=== PATIENT | male | born 1980 | race Caucasian/White ===

== ENCOUNTER 2018-04-13 20:13 | Emergency (ER) | payer OTHER ==
[~2018-04-13] VITALS: Ht 154.9 cm; Wt 59.0 kg
[~2018-04-13 20:13] MED LIST: DOCSEN PO; HYDMOR4 PO; PROM25 PO
[2018-04-13] MEDS ORDERED: AMLO5 (20:40)
[2018-04-13] MEDS ORDERED: CYCL10 PO (20:40)
[2018-04-13] MEDS ORDERED: LEVSOD50 (20:41)
[2018-04-13] MEDS ORDERED: NYST237S MT (21:07)
[2018-04-13] MEDS ORDERED: Zithromax250 MG PO (21:07)
[2018-04-14] MEDS ORDERED: Chloraseptic177 ML TOP (15:41)
== END 2018-04-13 21:12 | disposition home or self-care (01) ==
LOC: ER 20:13
DX: J02.9 Acute pharyngitis, unspecified (principal); I10 Essential (primary) hypertension; F17.210 Nicotine dependence, cigarettes, uncomplicated; Z79.899 Other long term (current) drug therapy
CPT/HCPCS: 94640; 99283-25; J1100

== ENCOUNTER 2019-06-01 10:36 | Emergency (ER) | payer OTHER ==
[~2019-06-01] VITALS: Ht 154.9 cm; Wt 61.2 kg
[~2019-06-01 10:36] MED LIST changes: +AMLO5; +CYCL10 PO; +Chloraseptic177 ML TOP; +Cleocin HCl300 MG PO; +LEVSOD50; +NYST237S MT; +Zithromax250 MG PO
== END 2019-06-01 12:45 | disposition home or self-care (01) ==
LOC: ER 10:36
DX: M25.462 Effusion, left knee (principal); I10 Essential (primary) hypertension; F17.200 Nicotine dependence, unspecified, uncomplicated
CPT/HCPCS: 29505; 73564; 99283-25

== ENCOUNTER 2019-06-14 19:39 | Emergency (ER) | payer OTHER ==
[~2019-06-14] VITALS: Ht 152.4 cm; Wt 61.2 kg
[2019-06-14 20:23] LABS: BASOPHILS PERCENT AUTO 1 % (0-2); EOSINOPHILS ABSOLUTE AUTO 0.14 K/mm3 (0.00-0.68); EOSINOPHILS PERCENT AUTO 1 % (0-6); Hematocrit 47.3 % (37.0-53.0); Hemoglobin 15.5 g/dL (13.5-17.5); IMMATURE GRAN ABSOLUTE AUTO 0.04 K/mm3 (0.00-0.10); IMMATURE GRAN PERCENT AUTO 0 % (0-1); LYMPHOCYTES ABSOLUTE AUTO 1.95 K/mm3 (0.84-5.20); LYMPHOCYTES PERCENT AUTO 17 % (21-46); MONOCYTES PERCENT AUTO 8 % (4-13); Mean Corpuscular HGB 29.3 pg (26.0-34.0); Mean Corpuscular HGB Conc 32.8 g/dL (31.5-36.5); Mean Corpuscular Volume 89 fL (80-100); Mean Platelet Volume 9.2 fL (9.1-12.4); NEUTROPHILS ABSOLUTE AUTO 8.41 K/mm3 (1.96-9.15); NEUTROPHILS PERCENT AUTO 73 % (41-73); Platelet Count 302 K/mm3 (150-400); RDW Coefficient Variation 12.7 % (11.7-14.2); RDW Standard Deviation 41.7 fL (35.1-46.3); Red Blood Cell Count 5.29 M/mm3 (4.30-5.90); White Blood Cell Count 11.54 K/mm3 (4.00-11.30)
[2019-06-14 20:42] LABS: Alanine Aminotransfer (ALT/SGP 16 U/L (12-78); Albumin, Blood 4.3 g/dL (3.4-5.0); Alk Phos 136 U/L (50-136); Anion Gap 4 mmol/L (6-16); Aspartate Aminotrans (AST/SGOT 29 U/L (12-37); Bilirubin, Total 0.7 mg/dL (0.1-1.0); Blood Urea Nitrogen 13 mg/dL (8-24); Bun/Creatinine Ratio 15.4 (12.0-20.0); CO2, Blood 29 mmol/L (21-32); Calcium, Blood 9.7 mg/dL (8.5-10.1); Chloride, Blood 105 mmol/L (98-108); Creatinine, Blood 0.84 mg/dL (0.60-1.20); Globulin, Blood 4.1 g/dL (2.2-4.0); Glomerular Filtration Rate >60 (60-); Glucose, Blood 106 mg/dL (70-99); Sodium, Blood 138 mmol/L (136-145); Total Protein, Blood 8.4 g/dL (6.4-8.2)
[2019-06-14] MEDS ORDERED: LEVE500 PO (23:20)
[2019-06-14] MEDS ORDERED: Norvasc5 MG PO (23:20)
== END 2019-06-14 23:45 | disposition home or self-care (01) ==
LOC: ER 19:39
PROVIDERS: Physician Assistant
DX: R56.9 Unspecified convulsions (principal); I10 Essential (primary) hypertension; F17.210 Nicotine dependence, cigarettes, uncomplicated; Z91.14 Patient's other noncompliance with medication regimen
CPT/HCPCS: 36415; 80053; 85025; 99283-25

== ENCOUNTER 2019-10-09 18:01 | Emergency (ER) | payer OTHER ==
[~2019-10-09 18:01] MED LIST changes: +LEVE500 PO; +Norvasc5 MG PO
[2019-10-28] MEDS ORDERED: AMLODIPINE BESYL5 MG PO (01:06)
[2019-10-28] MEDS ORDERED: LEVE500 PO (01:07)
[2019-10-28] MEDS ORDERED: HYDCOR2.5C PR (01:42)
[2019-10-28] MEDS ORDERED: Colace250 MG PO (01:42)
== END 2019-10-09 19:07 | disposition left against medical advice (07) ==
LOC: ER 18:01
DX: Z53.21 Procedure and treatment not carried out due to patient leaving prior to being seen by health care provider (principal)

== ENCOUNTER 2019-10-16 10:16 | Emergency (ER) | payer OTHER ==
[~2019-10-16] VITALS: Ht 154.9 cm; Wt 61.2 kg
[2019-10-28] MEDS ORDERED: AMLODIPINE BESYL5 MG PO (01:06)
[2019-10-28] MEDS ORDERED: LEVE500 PO (01:07)
[2019-10-28] MEDS ORDERED: HYDCOR2.5C PR (01:42)
[2019-10-28] MEDS ORDERED: Colace250 MG PO (01:42)
== END 2019-10-16 11:24 ==
LOC: ER 10:16
DX: R25.1 Tremor, unspecified (principal); I10 Essential (primary) hypertension; F17.210 Nicotine dependence, cigarettes, uncomplicated
CPT/HCPCS: 99283

== ENCOUNTER 2020-07-16 19:36 | Emergency (ER) | payer OTHER ==
[~2020-07-16 19:36] MED LIST changes: +ALBU90OI INH; +AMLODIPINE BESYL5 MG PO; +Colace250 MG PO; +HYDCOR2.5C PR
[2020-07-20] MEDS ORDERED: Crutch1 EACH MISC (02:43)
== END 2020-07-16 20:22 | disposition left against medical advice (07) ==
LOC: ER 19:36
DX: Z53.21 Procedure and treatment not carried out due to patient leaving prior to being seen by health care provider (principal)

== ENCOUNTER 2020-09-01 02:08 | Emergency (ER) | payer OTHER ==
[~2020-09-01] VITALS: Ht 152.4 cm; Wt 65.8 kg
[~2020-09-01 02:08] MED LIST changes: +Crutch1 EACH MISC
[2020-09-01] MEDS ORDERED: ALBU90OI INH (03:41)
[2020-09-01] MEDS ORDERED: PRED20 PO (03:41)
[2020-09-01] MEDS ORDERED: BACL10 PO (03:48)
== END 2020-09-01 03:52 | disposition home or self-care (01) ==
LOC: ER 02:08
DX: J44.9 Chronic obstructive pulmonary disease, unspecified (principal); I10 Essential (primary) hypertension; F17.210 Nicotine dependence, cigarettes, uncomplicated; Z87.39 Personal history of other diseases of the musculoskeletal system and connective tissue; Z79.899 Other long term (current) drug therapy
CPT/HCPCS: 71046; 94640; 99283-25; J1100

== ENCOUNTER 2021-06-14 04:55 | Emergency (ER) | payer OTHER ==
[~2021-06-14] VITALS: Ht 152.4 cm; Wt 65.8 kg
[~2021-06-14 04:55] MED LIST changes: +BACL10 PO; +PRED20 PO
[2021-06-14] MEDS ORDERED: Voltaren100 GM TOP (05:56)
== END 2021-06-14 06:14 | disposition home or self-care (01) ==
LOC: ER 04:55
DX: M25.551 Pain in right hip (principal); G89.29 Other chronic pain; F17.210 Nicotine dependence, cigarettes, uncomplicated; Z96.641 Presence of right artificial hip joint
CPT/HCPCS: 73502; 99283-25

== ENCOUNTER 2021-07-27 05:50 | Emergency (ER) | payer OTHER ==
[~2021-07-27] VITALS: Ht 154.9 cm; Wt 61.2 kg
[~2021-07-27 05:50] MED LIST changes: +Voltaren100 GM TOP
[2021-07-27] MEDS ORDERED: IBUP600 PO (07:14)
== END 2021-07-27 07:21 | disposition home or self-care (01) ==
LOC: ER 05:50
DX: M25.551 Pain in right hip (principal); M79.604 Pain in right leg; I10 Essential (primary) hypertension; F17.210 Nicotine dependence, cigarettes, uncomplicated
CPT/HCPCS: 73502; 73562-RT; 99283-25

== ENCOUNTER 2021-08-14 23:37 | Inpatient (IN) | payer OTHER ==
[~2021-08-14] VITALS: Ht 152.4 cm; Wt 59.0 kg
[~2021-08-14 23:37] MED LIST changes: +IBUP600 PO
[2021-08-15] MEDS ORDERED: IBUP600 PO (02:05)
[2021-08-15 03:16] LABS: BASOPHILS ABSOLUTE AUTO 0.03 K/mm3 (0.00-0.23); BASOPHILS PERCENT AUTO 0 % (0-2); EOSINOPHILS ABSOLUTE AUTO 0.05 K/mm3 (0.00-0.68); EOSINOPHILS PERCENT AUTO 1 % (0-6); Hemoglobin 13.1 g/dL (13.5-17.5); IMMATURE GRAN ABSOLUTE AUTO 0.03 K/mm3 (0.00-0.10); IMMATURE GRAN PERCENT AUTO 0 % (0-1); LYMPHOCYTES ABSOLUTE AUTO 1.32 K/mm3 (0.84-5.20); LYMPHOCYTES PERCENT AUTO 14 % (21-46); MONOCYTES ABSOLUTE AUTO 0.66 K/mm3 (0.16-1.47); MONOCYTES PERCENT AUTO 7 % (4-13); Mean Corpuscular HGB 28.3 pg (26.0-34.0); Mean Corpuscular HGB Conc 32.8 g/dL (31.5-36.5); Mean Corpuscular Volume 86 fL (80-100); Mean Platelet Volume 9.4 fL (9.1-12.4); NEUTROPHILS ABSOLUTE AUTO 7.24 K/mm3 (1.96-9.15); NEUTROPHILS PERCENT AUTO 78 % (41-73); Platelet Count 239 K/mm3 (150-400); RDW Coefficient Variation 13.5 % (11.7-14.2); RDW Standard Deviation 42.5 fL (35.1-46.3); Red Blood Cell Count 4.63 M/mm3 (4.30-5.90); White Blood Cell Count 9.33 K/mm3 (4.00-11.30)
[2021-08-15 05:27] LABS: Anion Gap 3 mmol/L (6-16); Blood Urea Nitrogen 14 mg/dL (8-24); Bun/Creatinine Ratio 16.7 (12.0-20.0); CO2, Blood 30 mmol/L (21-32); Calcium, Blood 9.1 mg/dL (8.5-10.1); Chloride, Blood 104 mmol/L (98-108); Creatinine, Blood 0.84 mg/dL (0.60-1.20); Glomerular Filtration Rate >60 (60-); Glucose, Blood 128 mg/dL (70-99); Potassium, Blood 3.7 mmol/L (3.5-5.5); Sodium, Blood 137 mmol/L (136-145)
[2021-08-15 05:44] LABS: International Normalized Ratio 1.04; Prothrombin Time Results 10.9 Sec (9.7-11.5)
--- NOTE | 2021-08-15 06:54 | NUR ---
PT ARRIVED FROM ED AND WAS ADMITTED IN ROOM 219. ARRIVED BY STRETCHER AND WAS ASSISTED WITH TRANSFERRING TO BED. ALERT AND ORIENTED, C/O PAIN IN THE RLL AND MEDICATED INDICATED. ASSISTED WITH OTHER CARE, CALL LIGHT PLACED NEAR HIM AND ENCOURAGED TO CALL FOR HELP WHE ASSISTANCE IS NEEDED HE IS MONITORED.
[2021-08-15 07:35] LABS: SARS-Cov-2 (COVID-19) PCR, MMC NEGATIVE (NEGATIVE)
--- NOTE | 2021-08-15 09:53 | NUR ---
PATIENT TAKEN TO PRE OP FOR SURGERY TODAY.
--- NOTE | 2021-08-15 12:12 | NUR ---
08/15/21 1212 Enoc Trejo NO SPECIMEN PER
--- NOTE | 2021-08-15 18:07 | NUR ---
PATIENT WENT TO SURGERY TODAY AND RETURNED AT 1300. PATIENT VERY DROWSY UPON ARRIVAL, WILL AWAKEN TO VOICE. NO COMPLAINTS OF PAIN OR NAUSEA AT THAT TIME. O2 WEANED DOWN TO ROOM AIR AT THIS TIME. PRN HTN MEDS ORDERED PER MED AND GIVEN ONCE TODAY. IVF CONTINUE. DRESSING TO RIGHT LEG CDI, IMMOBILIZER IN PLACE AND ON PROPERLY. AAOX4 BUT STILL REMAINS DROWSY. CURRENTLY EATING DINNER. USED TRAPEZE TO PULL HIMSELF UP IN BED. MEDICATED FOR PAIN AT THIS TIME FOR 9/10 PAIN IN RIGHT LEG. TOES ARE WARM AND PINK AND MOVEMENT ON COMMAND. NO SIGNS OR SYMPTOMS ACUTE DISTRESS NOTED. CALL LIGHT AND WATER IN EASY REACH. ABLE TO MAKE NEEDS AND WANTS KNOWN. WILL MONITOR.
--- NOTE | 2021-08-16 03:19 | NUR ---
PT HAS BEEN REFUSING TO ALLOW STAF TO REMOVE LINENS FROM OR.ALSO HAS REPOSITIONED SELF AND DECLINED ASSIST FOR REPOSITION WHEN I H AVE OFFERED. PT VERB UNDERSTANDING I AM NOT ABLE TO FULLY ASSESS SKIN.
[2021-08-16 03:57] LABS: Hemoglobin 14.8 g/dL (13.5-17.5); Mean Corpuscular HGB 28.5 pg (26.0-34.0); Mean Corpuscular HGB Conc 32.9 g/dL (31.5-36.5); Mean Corpuscular Volume 87 fL (80-100); Mean Platelet Volume 9.5 fL (9.1-12.4); Platelet Count 258 K/mm3 (150-400); RDW Coefficient Variation 13.5 % (11.7-14.2); RDW Standard Deviation 42.6 fL (35.1-46.3); White Blood Cell Count 14.68 K/mm3 (4.00-11.30)
[2021-08-16 04:22] LABS: Alanine Aminotransfer (ALT/SGP 24 U/L (12-78); Albumin, Blood 3.7 g/dL (3.4-5.0); Albumin/Globulin Ratio 0.8 (0.8-1.8); Alk Phos 142 U/L (50-136); Anion Gap 6 mmol/L (6-16); Aspartate Aminotrans (AST/SGOT 23 U/L (12-37); Bilirubin, Total 1.3 mg/dL (0.1-1.0); Blood Urea Nitrogen 10 mg/dL (8-24); Bun/Creatinine Ratio 14.3 (12.0-20.0); CO2, Blood 27 mmol/L (21-32); Calcium, Blood 9.5 mg/dL (8.5-10.1); Chloride, Blood 101 mmol/L (98-108); Ferritin, Serum 233 ng/mL (26-388); Globulin, Blood 4.7 g/dL (2.2-4.0); Glomerular Filtration Rate >60 (60-); Glucose, Blood 138 mg/dL (70-99); Iron Serum 49 ug/dL (65-175); Percent Saturation 13.4 % (20.0-50.0); Potassium, Blood 4.1 mmol/L (3.5-5.5); Sodium, Blood 134 mmol/L (136-145); Total Iron Binding Capacity 367 ug/dL (250-450); Total Protein, Blood 8.4 g/dL (6.4-8.2)
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
--- NOTE | 2021-08-16 09:02 | NUR ---
PATIENT LYING IN BED WITH NO SIGNS OR SYMPTOMS ACUTE DISTRESS NOTED. MADE DR SCHROEDER AWARE OF PATIENT WITH NO PO PAIN MEDS. MEDICATED FOR PAIN THIS AM. PT/OT HAVE BEEN CONSULTED AND PATIENT IS WAITING TO SEE THEM. PATIENT READY TO GO HOME HE STATES. WILL MONITOR.
--- NOTE | 2021-08-16 11:29 | NUR ---
DISCHARGE: PATIENT DISCHARGED AT THIS TIME AMA. PATIENT ENCOURGAGED TO STAY FOR SAFETY. DISCUSSED RISK WITH PATIENT OF INFECTION, FRACTURE, IMMOBILITY AND PAIN. DISCUSSED BENIFIT OF HIM LEAVING ARE NONE. CALLED DR SCHROEDER TO MAKE AWARE OF PATIENT LEAVING AMA. DR GAMEZ NOTIFIED OF PATIENT LEAVING AMA. DR GAMEZ WANTED THIS NURSE TO TELL PATIENT TO FOLLOW UP WITH HIM IN ONE WEEK, TO KEEP KNEE IMMOBILIZER ON FOR ONE WEEK, TO TAKE AN ASA 81MG DAILY AND NON WEIGHT BEARING TO RIGHT LEG. PHYSICAL THERAPY EXPLAINED AND ASSESSED PATIENT MOVING TO [facility], PATIENT DID WELL AND DID NOT BEAR ANY WEIGHT TO THAT RIGHT LEG. PATIENTS UPPER EXTREMITES SEEM VERY STRONG. PATIENT VERBALIZED UNDERSTANDING OF DIRECTIONS AND RISKS VERSUS BENIFITS OF LEAVING AMA. PATIENT WANTS TO LEAVE AMA DUE TO A FAMILY EMERGENCY THAT HE HAS TO HELP WITH. IV REMOVED FROM LEFT AC WITH NO ISSUES. PUSHED PATIENT IN WHEELCHAIR TO HIS RV WHERE HE WAS ABLE TO GET INTO WITH NO ASSIST AND NO WEIGHT BEARING NOTED TO RIGHT LEG. HE IMMEDIATELY TOOK A CIGERETTE FROM HIS SIGNIFICANT OTHER AND STARTED SMOKING.
== END 2021-08-16 10:56 | disposition left against medical advice (07) | DRG 481 ==
LOC: ER 23:37 → SURS 08-15 04:47
PROVIDERS: Internal Medicine; Orthopaedic Surgery; Student in an Organized Health Care Education/Training Program; ADMIT Internal Medicine
PROC: 0QSB04Z Reposition Right Lower Femur with Internal Fixation Device, Open Approach (ICD-10-PCS; principal; 2021-08-15 09:45)
PROC: 3E02340 Introduction of Influenza Vaccine into Muscle, Percutaneous Approach (ICD-10-PCS; 2021-08-15 09:45)
DX: S72.431A Displaced fracture of medial condyle of right femur, initial encounter for closed fracture (principal); M97.01XA Periprosthetic fracture around internal prosthetic right hip joint, initial encounter; W18.30XA Fall on same level, unspecified, initial encounter; F15.10 Other stimulant abuse, uncomplicated; F11.10 Opioid abuse, uncomplicated; S89.91XA Unspecified injury of right lower leg, initial encounter; Z20.822 Contact with and (suspected) exposure to COVID-19; G89.29 Other chronic pain; Z96.641 Presence of right artificial hip joint; F17.210 Nicotine dependence, cigarettes, uncomplicated; Z79.899 Other long term (current) drug therapy; Z23 Encounter for immunization; D64.9 Anemia, unspecified
CPT/HCPCS: 36415; 72170; 73551; 73560-RT; 73590; 73700; 80048; 80053; 82728; 83540; 83550; 85025; 85027; 85610; 85730; 86850; 86870; 86900; 86901; 94760; 96374; 96375; 96376; 97162; 97530; 99285-25; A9270; C1713; C1769; J0360; J0690; J1100; J1170; J1650; J2250; J2270; J2370; J2405; J2704; J2795; J7120; U0004

== ENCOUNTER 2022-01-24 07:47 | Emergency (ER) | payer OTHER ==
[~2022-01-24] VITALS: Ht 152.4 cm; Wt 63.5 kg
== END 2022-01-24 14:25 | disposition home or self-care (01) ==
LOC: ER 07:47
DX: M97.01XA Periprosthetic fracture around internal prosthetic right hip joint, initial encounter (principal); F17.210 Nicotine dependence, cigarettes, uncomplicated; Z96.641 Presence of right artificial hip joint
CPT/HCPCS: 73502; 73700; J1170; J2405

== ENCOUNTER 2022-04-24 18:55 | Emergency (ER) | payer OTHER ==
[~2022-04-24] VITALS: Ht 170.2 cm; Wt 77.1 kg
== END 2022-04-24 19:24 | disposition home or self-care (01) ==
LOC: ER 18:55
DX: Z02.89 Encounter for other administrative examinations (principal); F11.10 Opioid abuse, uncomplicated; G89.29 Other chronic pain; M25.561 Pain in right knee; I10 Essential (primary) hypertension; F17.210 Nicotine dependence, cigarettes, uncomplicated
CPT/HCPCS: 99282

== ENCOUNTER 2022-05-04 03:14 | Emergency (ER) | payer OTHER ==
[~2022-05-04] VITALS: Ht 154.9 cm; Wt 61.2 kg
[2022-05-04 04:42] LABS: Hematocrit 38.5 % (37.0-53.0); Hemoglobin 12.5 g/dL (13.5-17.5); Mean Corpuscular HGB 27.8 pg (26.0-34.0); Mean Corpuscular HGB Conc 32.5 g/dL (31.5-36.5); Mean Corpuscular Volume 86 fL (80-100); Mean Platelet Volume 10.4 fL (9.1-12.4); Platelet Count 255 K/mm3 (150-400); RDW Coefficient Variation 13.4 % (11.7-14.2); RDW Standard Deviation 42.2 fL (35.1-46.3); White Blood Cell Count 12.64 K/mm3 (4.00-11.30)
[2022-05-04 05:08] LABS: Albumin, Blood 3.2 g/dL (3.4-5.0); Albumin/Globulin Ratio 0.6 (0.8-1.8); Bun/Creatinine Ratio 23.9 (12.0-20.0); Calcium, Blood 10.2 mg/dL (8.5-10.1); Creatinine, Blood 0.88 mg/dL (0.60-1.20); Potassium, Blood 4.4 mmol/L (3.5-5.5); Total Protein, Blood 8.2 g/dL (6.4-8.2)
[2022-05-04 05:55] LABS: BAND PERCENT MAN 12 % (0-8); BASOPHILS PERCENT MAN 0 % (0-2); EOSINOPHILS PERCENT MAN 0 % (0-6); LYMPHOCYTES % ATYPICAL MANUAL 1 % (0-0); LYMPHOCYTES ABSOLUTE MAN 0.63 K/mm3 (0.84-5.20); LYMPHOCYTES PERCENT MAN 4 % (21-46); MONOCYTES ABSOLUTE MAN 1.26 K/mm3 (0.16-1.47); MONOCYTES PERCENT MAN 10 % (4-13); NEUTROPHILS ABSOLUTE MAN 10.74 K/mm3 (1.96-9.15); SEG NEUTROPHILS PERCENT MAN 73 % (41-73); TOTAL CELLS COUNTED 100
== END 2022-05-04 11:20 | disposition left against medical advice (07) ==
LOC: ER 03:14
PROVIDERS: Emergency Medicine
DX: M25.561 Pain in right knee (principal); M25.551 Pain in right hip; G89.29 Other chronic pain; R53.1 Weakness; F15.10 Other stimulant abuse, uncomplicated; F11.90 Opioid use, unspecified, uncomplicated; F17.210 Nicotine dependence, cigarettes, uncomplicated; I10 Essential (primary) hypertension
CPT/HCPCS: 36415; 71260; 73552; 80053; 84484; 85025; 85379; 93005; 93010; 93971; J7030; Q9967

== ENCOUNTER 2022-05-07 05:30 | Inpatient (IN) | payer OTHER ==
[~2022-05-07] VITALS: Ht 154.9 cm; Wt 63.5 kg
[2022-05-07 07:46] LABS: Hematocrit 37.1 % (37.0-53.0); Hemoglobin 12.4 g/dL (13.5-17.5); Mean Corpuscular HGB 27.4 pg (26.0-34.0); Mean Corpuscular HGB Conc 33.4 g/dL (31.5-36.5); Mean Corpuscular Volume 82 fL (80-100); Mean Platelet Volume 9.4 fL (9.1-12.4); Platelet Count 339 K/mm3 (150-400); RDW Standard Deviation 42.2 fL (35.1-46.3); Red Blood Cell Count 4.52 M/mm3 (4.30-5.90); White Blood Cell Count 18.53 K/mm3 (4.00-11.30)
[2022-05-07 08:09] LABS: BAND PERCENT MAN 22 % (0-8); BASOPHILS PERCENT MAN 0 % (0-2); EOSINOPHILS PERCENT MAN 0 % (0-6); LYMPHOCYTES % ATYPICAL MANUAL 2 % (0-0); LYMPHOCYTES PERCENT MAN 11 % (21-46); MONOCYTES ABSOLUTE MAN 1.11 K/mm3 (0.16-1.47); MONOCYTES PERCENT MAN 6 % (4-13); SEG NEUTROPHILS PERCENT MAN 59 % (41-73); TOTAL CELLS COUNTED 100
[2022-05-07 08:12] LABS: Alanine Aminotransfer (ALT/SGP 24 U/L (12-78); Albumin, Blood 2.4 g/dL (3.4-5.0); Albumin/Globulin Ratio 0.4 (0.8-1.8); Alk Phos 365 U/L (50-136); Anion Gap 7 mmol/L (6-16); Aspartate Aminotrans (AST/SGOT 44 U/L (12-37); Bilirubin, Total 5.6 mg/dL (0.1-1.0); Blood Urea Nitrogen 26 mg/dL (8-24); Bun/Creatinine Ratio 21.5 (12.0-20.0); CO2, Blood 29 mmol/L (21-32); Calcium, Blood 10.2 mg/dL (8.5-10.1); Chloride, Blood 97 mmol/L (98-108); Creatinine, Blood 1.21 mg/dL (0.60-1.20); Globulin, Blood 5.5 g/dL (2.2-4.0); Glomerular Filtration Rate 77 (60-); Glucose, Blood 93 mg/dL (70-99); Potassium, Blood 3.5 mmol/L (3.5-5.5); Sodium, Blood 133 mmol/L (136-145); Total Protein, Blood 7.9 g/dL (6.4-8.2)
[2022-05-07 08:13] LABS: C-REACTIVE PROTEIN, EXT RANGE >19.000 mg/dL (0.000-0.300)
[2022-05-07 10:33] LABS: BODY FLUID RBC 1.751 M/mm3 (0-0); RBC Count, Synovial Fluid 1751000 /mm3 (0-0); WBC Count, Synovial Fluid 1227 /mm3 (0-180)
[2022-05-07 10:42] LABS: Body Fluid Crystals NEG (NEGATIVE)
[2022-05-07 11:12] LABS: SARS-Cov-2 (COVID-19) PCR, MMC NEGATIVE (NEGATIVE)
[2022-05-07 11:19] LABS: Eos, Synovial Fluid 4 % (0-2); Lymphs, Synovial Fluid 20 % (0-15); Monocytes/Macrophages, Synovia 2 % (0-65); Neutrophils, Synovial Fluid 74 % (0-24)
[2022-05-07 11:23] LABS: Appearance, Synovial Fluid Bloody (Clear); Color, Synovial Fluid Red (None-P Yel)
--- NOTE | 2022-05-07 12:05 | NUR ---
Assumed Care Report received from Conner, RN-ED. Patient arrived via stretcher. Girlfriend at bedside at this time. Patient is lethargic, recent IV drug abuse (this morning). Awakens to tactile and verbal loud stimulation but drifts back to sleep. Claims he hardly every sleeps at home. Reports living in "wherever I can park". C/O throbbing pain to R hip even at rest. Sliding R leg with ambulation to bathroom, will use FWW for ambulation to offset weight bearing on that R leg/hip. Educated on NPO status, advised to stay NPO in case surgery scheduled. Settled to room. Call light nearby, bed alarm on.
--- NOTE | 2022-05-07 16:09 | NUR ---
Regular Diet/NPO V.O. from Dr. Bowman for patient to have regular diet now and keep NPO after midnight for procedure.
--- NOTE | 2022-05-07 18:51 | NUR ---
Shift Summary A/O, 1p FWW to bathroom. Polite/cooperative. Voiding well, urine appears concentrated and patient has frequent interruptions with stream. Patient reports last bm 05/02 (5 days ago) but that this is "normal" and can take anywhere from "5-10 days". Lethargic during admission, a little more awake now after MRI. Ate only 10% of dinner, did not like food instead ate snack girlfriend brought (pop-tart). Plan for ID with Dr. Bowman tomorrow, informed pt he will be NPO at midnight, he is agreeable. NS @ 125. Patient reports "living in an RV" and "sleeping wherever he can park". Resides with girlfriend who is also an IV drug user. Girlfriend states both "uses IV drug less than the average users do" and "about 3 times daily". C/O R hip pain. Needs mod A with R leg from supine to sit and back into bed.
--- NOTE | 2022-05-08 05:09 | NUR ---
WHEN COMPLETING SURGICAL INFECTION PACKET PT REFUSED MOUTH WASH.
[2022-05-08 05:26] LABS: Hematocrit 31.2 % (37.0-53.0); Hemoglobin 10.4 g/dL (13.5-17.5); Mean Corpuscular HGB 27.6 pg (26.0-34.0); Mean Corpuscular HGB Conc 33.3 g/dL (31.5-36.5); Mean Corpuscular Volume 83 fL (80-100); Mean Platelet Volume 9.3 fL (9.1-12.4); Platelet Count 315 K/mm3 (150-400); RDW Coefficient Variation 14.4 % (11.7-14.2); RDW Standard Deviation 43.1 fL (35.1-46.3); Red Blood Cell Count 3.77 M/mm3 (4.30-5.90); White Blood Cell Count 13.54 K/mm3 (4.00-11.30)
[2022-05-08 05:48] LABS: BAND PERCENT MAN 7 % (0-8); BASOPHILS PERCENT MAN 0 % (0-2); EOSINOPHILS PERCENT MAN 0 % (0-6); LYMPHOCYTES ABSOLUTE MAN 0.27 K/mm3 (0.84-5.20); LYMPHOCYTES PERCENT MAN 2 % (21-46); METAMYELOCYTE ABSOLUTE MAN 0.13 K/mm3 (0.00-0.00); METAMYELOCYTE PERCENT MAN 1 % (0-0); MONOCYTES ABSOLUTE MAN 0.54 K/mm3 (0.16-1.47); MONOCYTES PERCENT MAN 4 % (4-13); NEUTROPHILS ABSOLUTE MAN 12.59 K/mm3 (1.96-9.15); SEG NEUTROPHILS PERCENT MAN 86 % (41-73); TOTAL CELLS COUNTED 100
[2022-05-08 05:56] LABS: Albumin, Blood 1.6 g/dL (3.4-5.0); Albumin/Globulin Ratio 0.4 (0.8-1.8); Bilirubin, Total 4.3 mg/dL (0.1-1.0); Bun/Creatinine Ratio 20.5 (12.0-20.0); Calcium, Blood 8.9 mg/dL (8.5-10.1); Creatinine, Blood 0.78 mg/dL (0.60-1.20); Globulin, Blood 4.3 g/dL (2.2-4.0); Potassium, Blood 3.1 mmol/L (3.5-5.5)
[2022-05-08 06:04] LABS: Total Protein, Blood 5.9 g/dL (6.4-8.2)
--- NOTE | 2022-05-08 06:24 | NUR ---
SHIFT SUMMARY PT HAS RESTED T/O SHIFT, HE HAS BEEN COOPERATIVE WITH CARE, PT WAS FRUSTRATED AT THE START OF THE SHIFT OVER THE FACT THAT HE COULD NOT GO OUTSIDE YESTERDAY EVENING TO VISIT WITH A FRIEND AND TO SMOKE. WHEN WE TALKED WITH PT AND EXPLAINED OUR POLICIES TO WHY HE COULD NOT LEAVE THE FLOOR WHILE BEING TREATED HE WAS AGREEABLE. PT HAS RESTED T/O THE NIGHT SINCE, NO COMPLAINTS OF PAIN. RIGHT HIP REMAINS SWOLLEN AND HOT TO TOUCH. POSITIVE BLOOD CULTURES RECEIVED THIS SHIFT FROM LAB AND DR. ACEVEDO NOTIFIED, PT ON VANCO CURRENTLY, NO NEW ORDERS GIVEN. PT TACYCARDIC, THIS IS NO CHANGE SINCE ADMISSION, PT IS ASYMPTOMATIC. PLAN IS FOR I&D TODAY AND THEN TRANSFER TO [facility], HE HAS BEEN NPO SINCE MIDNIGHT. BED IN LOWEST POSITION, CALL LIGHT WITHIN REACH.
--- NOTE | 2022-05-08 10:15 | NUR ---
provided pt's mother with update following signature for release of information from patient
--- NOTE | 2022-05-08 10:30 | NUR ---
pt transported to daysurgery on own bed
--- NOTE | 2022-05-08 11:10 | NUR ---
05/08/22 1110 Lenin Gill PT RECIEVED ANTIBIOTICS PRIOR TO ARRIVAL TO OR. ARON.
--- NOTE | 2022-05-08 12:09 | NUR ---
AWAKE, PULLED OP TUBE OUT, BIOX 95 ROOM AIR, WOUND VAC INTACT. EYES OPEN.
--- NOTE | 2022-05-08 13:44 | NUR ---
RECEIVED REPORT FROM LAB, PT HAS BLOOD CULTURE POSITIVE FOR GRAM POSITIVE COCCI IN CLUSTERS
--- NOTE | 2022-05-08 17:59 | NUR ---
PT'S SO AND A FRIEND IN WITH PT. THIS RN HAS SPOKEN WITH PT'S SO, INFORMED HER PT MUST NOT HAVE ANY MEDICATIONS/SUBSTANCES OTHER THAN WHAT PT HAS BEEN ADMIISTERED BY HOSPITAL STAFF. PT SO REPLIED THAT SHE UNDERSTOOD. PT AND SO PROVIDED WITH LAB RESULTS/FINDINGS. PT ASKED QUESTIONS ABOUT DISEASE PROCESSES, BECAME TEARFUL, IS CONCERNED ABOUT OUTCOME. PROVIDED THERAPEUTIC COMMUNICATION TO PT AND SO.
--- NOTE | 2022-05-08 18:11 | NUR ---
FOLLOWING SURGICAL INTERVENTION, PT IS SITTING UP IN BED VISITING WITH FRIENDS, TOLERATING PO INTAKE. DENIES N/V. WOUND VAC COMPRESSION/SUCTIONING R HIP OF SANGUINOUS MATERIAL.
--- NOTE | 2022-05-09 04:32 | NUR ---
POD 1 S/P R HIP I&D. PT VSS T/O NIGHT. PT SOMULANT FOR MOST OF NIGHT; AWOKE EASILY TO VERBAL STIMULI. WOUND VAC TO R HIP W/SANGUINOUS DRNG; SEAL AND SX INTACT.
[2022-05-09 08:27] LABS: BASOPHILS ABSOLUTE AUTO 0.09 K/mm3 (0.00-0.23); BASOPHILS PERCENT AUTO 1 % (0-2); Hematocrit 34.5 % (37.0-53.0); Hemoglobin 11.4 g/dL (13.5-17.5); LYMPHOCYTES ABSOLUTE AUTO 1.64 K/mm3 (0.84-5.20); LYMPHOCYTES PERCENT AUTO 9 % (21-46); MONOCYTES ABSOLUTE AUTO 0.82 K/mm3 (0.16-1.47); MONOCYTES PERCENT AUTO 5 % (4-13); Mean Corpuscular HGB 27.5 pg (26.0-34.0); Mean Corpuscular Volume 83 fL (80-100); Mean Platelet Volume 8.9 fL (9.1-12.4); Platelet Count 364 K/mm3 (150-400); RDW Coefficient Variation 14.6 % (11.7-14.2); Red Blood Cell Count 4.14 M/mm3 (4.30-5.90)
[2022-05-09 08:42] LABS: EOSINOPHILS ABSOLUTE AUTO 0.01 K/mm3 (0.00-0.68); EOSINOPHILS PERCENT AUTO 0 % (0-6); IMMATURE GRAN ABSOLUTE AUTO 0.73 K/mm3 (0.00-0.10); IMMATURE GRAN PERCENT AUTO 4 % (0-1); NEUTROPHILS ABSOLUTE AUTO 14.51 K/mm3 (1.96-9.15); NEUTROPHILS PERCENT AUTO 82 % (41-73)
[2022-05-09 08:48] LABS: Albumin, Blood 1.4 g/dL (3.4-5.0); Albumin/Globulin Ratio 0.3 (0.8-1.8); Bilirubin, Total 2.6 mg/dL (0.1-1.0); Bun/Creatinine Ratio 26.1 (12.0-20.0); C-REACTIVE PROTEIN, EXT RANGE 18.5 mg/dL (0.000-0.300); Calcium, Blood 8.3 mg/dL (8.5-10.1); Creatinine, Blood 0.77 mg/dL (0.60-1.20); Globulin, Blood 4.8 g/dL (2.2-4.0); Potassium, Blood 4.4 mmol/L (3.5-5.5); Total Protein, Blood 6.2 g/dL (6.4-8.2)
[2022-05-09 16:40] LABS: Vancomycin, Random 20.8 ug/mL
--- NOTE | 2022-05-09 18:03 | NUR ---
SHIFT SUMMARY: POD 1 RIGHT HIP I&D PATIENT IS A&OX4. VS ARE WNL AND IS ON RA. PAIN IS MANAGED WITH IV TORADOL. PATIENT HAS WOUND VAC WITH MODERATE RED OUTPUT IN WOUND VAC CANESTER. BLACK FOAM IS COMPRESSED AND HAS CONFIRMED SEAL. PATIENT DENIES NUMBNESS AND TINGLING. HE IS TOLERATING SMALL AMOUNTS OF PO INTAKE AND IS VOIDING. PATIENT IS A STAND PIVOT FROM BED TO CHAIR. CALL LIGHT WITHIN REACH. THE PLAN IS TO HAVE THE PATIENT NPO AT MIDNIGHT TONIGHT AND WILL HAVE ANOTHER I&D TOMORROW WITH DR. WHITE WHILE WAITING FOR AN [facility] BED TO OPEN UP.
[2022-05-09 19:55] LABS: U Amphetamine Screen DETECTED; U Barbituate Screen Not Detected; U Benzodiazapine Screen Not Detected; U Buprenorphine Screen Not Detected; U Cannabinoids Screen Not Detected; U Cocaine Screen Not Detected; U Methadone Screen Not Detected; U Methamphetamine Screen DETECTED; U Opiates Screen DETECTED; U Oxycodone Screen DETECTED; U Phencyclidine Screen Not Detected; U Propoxyphene Screen Not Detected
--- NOTE | 2022-05-10 06:23 | NUR ---
PT VSS, APPEARED TO SLEEP FOR MAJORITY OF NIGHT. PAIN MGD W/TORADOL. WOUND VAC DRNG SANGUINOUS DRNG. PT DENIED N/T TO EXT. PT NPO POST MIDNIGHT FOR PLANNED SURGERY TODAY.
--- NOTE | 2022-05-10 13:02 | NUR ---
PATIENT REPORTED FEELING DIZZY, LIGHTHEADED, WEAK. POC BLOOD SUGAR CHECKED AND 54. GAVE 1MG GLUCAGON IV. ORDER RECIEVED FROM DR REDDY VIA TELEPHONE.
--- NOTE | 2022-05-10 13:26 | NUR ---
RECHECK BLOOD GLUCOSE, 75. PATIENT TRANSPORTED TO OR VIA RDAGGETT AT THIS TIME.
--- NOTE | 2022-05-10 15:07 | NUR ---
05/10/22 1507 Fe Ac NO PREOP ANTIBIOTICS ORDERED PER PATIENT IS ON SCHEDULED ANTIBIOTICS.
--- NOTE | 2022-05-10 17:25 | NUR ---
PATIENT RETURNED TO ROOM FROM PACU. VSS ON RA. LUNGS CLEAR. WOUND VAC TO R HIP, HAS GOOD SUCTION W/ SS DRAINAGE IN CANISTER. PATIENT REPORTS PAIN TO BE 7/10 BUT "REALLY JUST WANTS TO EAT". CALL LIGHT IN REACH.
--- NOTE | 2022-05-10 18:45 | NUR ---
NO ACUTE CHANGES SINCE ARRIVAL TO FLOOR FROM SURGERY. VSS ON RA. WOUND VAC HAS GOOD SUCTION AT 120. REPORTS SIGNIFICANT PAIN TO R HIP, MEDICATING PER EMAR. TOLERATING REGULAR DIET. CALL LIGHT IN REACH, WILL REPORT TO ONCOMING RN.
--- NOTE | 2022-05-10 23:38 | NUR ---
WHEN ASSISTING PT WITH REPOSITIONING, BEANIE WAS PICKED UP AND I FELT WHAT APPEARED TO BE PILL LIKE OBJECTS AND SMALL PLASTIC BAGS INSIDE BEANIE. THE PT THEN QUICKY SNATCHED THE BEANIE AWAY AND SHOVED IT INTTO HIS ARMPIT. PT ASKED IF PARAPHANILIA WAS IN THE BEANIE, PATIENT DENIES. PATIENT EDUCATED ON IMPORTANCE OF IMPORTANCE OF NOT TAKING MEDICATION THAT IS NOT PROVIDED BY THE HOSPITAL. PATIENT VERBALIZED AGREEMENT. MAJOR GIFTS MANAGER NOTIFIED.
--- NOTE | 2022-05-11 00:45 | NUR ---
PAIN/WITHDRAWL: PT REP INC R HIP PAIN, GENERALIZED PAIN, CRAMPING AND FEELING RESTLESS. PT STATES "I AM GOING THROUGH HEROIN WITHDRAWLS" PT ASKED WHEN HE LAST USED, PT STATED 1.5 DAYS AGO; THIS RN CLARIFIED DAY W/PT. PT STATES MONDAY (05/09) AFTERNOON. PT REP HE USED WHILE OUTSIDE. PT REP HE USES HEROIN DAILY; "SEVERAL TIMES A DAY" PT STATES HE HAS HAD WITHDRAWL SX BEFORE, "BUT I USUALLY DON'T GO THIS LONG SO IT'S NOT THIS BAD" DISCUSSED W/PT IMPORTANCE OF NOT SELF MEDICATING W/MEDS OR DRUGS WHILE HE IS BEING MEDICATED IN THE HOSPITAL. PT STATES "I DON'T HAVE ANYTHING OR ELSE I WOULDN'T BE FEELING LIKE THIS" PT SHOWED THIS RN HIS BEANIE (SEE PREV RN NOTE) PT HAD LITHOGRAPHIC STRIPPER AND STRAW IN BEANIE, NO OTHER SUBSTANCES OR PARAPHENELIA FOUND ON/NEAR PT AT THIS TIME. PT VERBALIZED UNDERSTANDING AND AGREEMENT TO NOT SELF MEDICATE. PT MEDICATED FOR PAIN W/TORADOL AND PO OXYCODONE W/NO REP RELIEF. W/1MG IV DILAUDID. PT REP SOME RELIEF AFTER MEDICATED, RR WNL, WILL MONITOR CLOSELY.
--- NOTE | 2022-05-11 05:01 | NUR ---
VSS, BP NOTED TO BE ELEVATED BUT PT REMAINS ASYMTOMATIC. PT C/O INCREASING PAIN AND FEELING IF HE WAS EXPERIENCING WITHDRAWL SYMPTOMS, PT STATED THAT HE HAS NOT TAKEN HEROIN SINCE MONDAY. PAIN MEDICATIONS GIVEN PER NOV, PT REPORTED A DECREASE IN PAIN AND WAS ABLE TO FALL ASLEEP. WOUND VAC REMAINED AT 120 MMHG T/O THE NIHT, FOAM COMPRESSED. DRAINAGE NOTED TO BE DARK AND SANGUINEOUS. ICE APPLIED TO RIGHT HIP T/O THE NIGHT TO HELP WITH DISCOMFORT, ASSISTANCE WITH REPOSITIONING THE RIGHT LEG WAS ALSO GIVEN.
[2022-05-11 08:11] LABS: BASOPHILS ABSOLUTE AUTO 0.04 K/mm3 (0.00-0.23); BASOPHILS PERCENT AUTO 0 % (0-2); EOSINOPHILS ABSOLUTE AUTO 0.06 K/mm3 (0.00-0.68); EOSINOPHILS PERCENT AUTO 0 % (0-6); Hematocrit 25.4 % (37.0-53.0); Hemoglobin 8.3 g/dL (13.5-17.5); IMMATURE GRAN ABSOLUTE AUTO 0.78 K/mm3 (0.00-0.10); IMMATURE GRAN PERCENT AUTO 5 % (0-1); LYMPHOCYTES ABSOLUTE AUTO 3.21 K/mm3 (0.84-5.20); LYMPHOCYTES PERCENT AUTO 20 % (21-46); MONOCYTES ABSOLUTE AUTO 1.24 K/mm3 (0.16-1.47); MONOCYTES PERCENT AUTO 8 % (4-13); Mean Corpuscular HGB 27.2 pg (26.0-34.0); Mean Corpuscular HGB Conc 32.7 g/dL (31.5-36.5); Mean Corpuscular Volume 83 fL (80-100); Mean Platelet Volume 8.9 fL (9.1-12.4); NEUTROPHILS ABSOLUTE AUTO 10.48 K/mm3 (1.96-9.15); NEUTROPHILS PERCENT AUTO 66 % (41-73); Platelet Count 469 K/mm3 (150-400); RDW Coefficient Variation 14.8 % (11.7-14.2); RDW Standard Deviation 44.9 fL (35.1-46.3); Red Blood Cell Count 3.05 M/mm3 (4.30-5.90); White Blood Cell Count 15.81 K/mm3 (4.00-11.30)
[2022-05-11 08:37] LABS: Magnesium, Blood 2.2 mg/dL (1.6-2.4)
[2022-05-11 08:40] LABS: Bun/Creatinine Ratio 21.2 (12.0-20.0); Calcium, Blood 8.1 mg/dL (8.5-10.1); Creatinine, Blood 0.8 mg/dL (0.60-1.20)
--- NOTE | 2022-05-11 12:27 | NUR ---
PATIENT REFUSES TO BE UP TO CHAIR FOR MEALS. STATES "I JUST WANT TO STAY IN BED." EDUCATED PATIENT ON IMPORTANCE OF BEING OUT OF BED, CONTINUES TO DECLINE.
--- NOTE | 2022-05-11 14:09 | NUR ---
PATIENT REPETIVELY STATING "I WANT TO GO HOME", "GET ME HOME", "I NEED MY HEROIN". THIS RN EXPLAINED TO THE PATIENT THAT WE STRONGLY RECCOMEND HE STAY HERE TO GET THE CARE HE NEEDS FOR HIS WOUND, EXPLAINED THE RISKS OF HIM GOING HOME WHICH INCLUDE WORSENING INFECTION TO HIS SEPTIC HIP, LOSS OF LIMB, AND POTENTIALLY . THIS RN EXPLAINED HE WOULD BENEFIT FROM WOUND CARE & MANAGEMENT, ANTIBIOTICS, PAIN MANAGEMENT, AND MANAGEMNET FROM THE MD'S FOLLOWING HIM. PATIENT CONTINUES TO STATE "I NEED TO GO HOME, I NEED HEROIN". THIS RN CALLED DR REDDY AND EXPLAINED THE SITUATION TO HER, SHE REQUESTED TO SPEAK WITH THE PATIENT AND DID SO, PATIENT CONTINUED TO STATE HE IS GOING HOME. 2 VISITORS ARRIVED AT THE ROOM TO TAKE THE PATIENT HOME. THIS RN DISCUSSED A PLAN WITH GRGEOR MCPHERSON RN AND ADVISED THAT THIS RN REMOVE THE WOUND VAC AND PACK THE WOUND WITH 4X4 GAUZE WHICH THIS RN DID, WELL PLACE ABD PAD, TAPE, AND NUBIA WRAP AROUND PATIENTS HIP. THIS RN ADVISED THAT HE SEEK ASSISTANCE IF WOUND BLEEDS THROUGH DRESSING AND TO CHANGE DAILY OR NEEDED IF PATIENT DOES NOT PLAN TO SEEK FURTHER MEDICAL HELP. AMA FORM WAS DISCUSSED IN LENGTH AND PATIENT SIGNED IN AGREEMENT. PATIENT TRANSFERRED HIMSELF TO W/C AND WAS TAKEN OUT BY VISITORS.
== END 2022-05-11 13:52 | disposition left against medical advice (07) | DRG 466 ==
LOC: ER 05:30 → SURS 09:37
PROVIDERS: Emergency Medicine; Internal Medicine; Orthopaedic Surgery; ADMIT Family Medicine
PROC: 3E03329 Introduction of Other Anti-infective into Peripheral Vein, Percutaneous Approach (ICD-10-PCS; 2022-05-07)
PROC: 0J9L0ZZ Drainage of Right Upper Leg Subcutaneous Tissue and Fascia, Open Approach (ICD-10-PCS; 2022-05-08)
PROC: 0SP90JZ Removal of Synthetic Substitute from Right Hip Joint, Open Approach (ICD-10-PCS; 2022-05-10)
PROC: 0SR90JA Replacement of Right Hip Joint with Synthetic Substitute, Uncemented, Open Approach (ICD-10-PCS; principal; 2022-05-10 14:30)
DX: T84.51XA Infection and inflammatory reaction due to internal right hip prosthesis, initial encounter (principal); G92.8 Other toxic encephalopathy; E87.1 Hypo-osmolality and hyponatremia; M00.051 Staphylococcal arthritis, right hip; R78.81 Bacteremia; Q78.0 Osteogenesis imperfecta; Z20.822 Contact with and (suspected) exposure to COVID-19; B95.61 Methicillin susceptible Staphylococcus aureus infection as the cause of diseases classified elsewhere; I10 Essential (primary) hypertension; G40.909 Epilepsy, unspecified, not intractable, without status epilepticus; F11.10 Opioid abuse, uncomplicated; F15.10 Other stimulant abuse, uncomplicated; E86.0 Dehydration; G89.29 Other chronic pain; Z98.890 Other specified postprocedural states; Z96.651 Presence of right artificial knee joint; F17.210 Nicotine dependence, cigarettes, uncomplicated; Z79.899 Other long term (current) drug therapy; E87.6 Hypokalemia
CPT/HCPCS: 20611; 36415; 71260; 72157; 72158; 72170; 72193; 73552; 80048; 80053; 80202; 82947; 83605; 83735; 84484; 85025; 85379; 85651; 86140; 87040; 87070; 87075; 87077; 87147; 87186; 87205; 89051; 89060; 93005; 93010; 93306; 93971; 96365; 96366; 96375; 97110; 97162; 97165; 99284-25; 99285-25; A9270; A9577; J0696; J1100; J1170; J1610; J1644; J1650; J1885; J2250; J2405; J2704; J2710; J3010; J3370; J7030; J7060; J7120; Q9967; U0004

== ENCOUNTER 2022-07-27 01:47 | Day surgery (SDC) | payer OTHER ==
[~2022-07-27 01:47] MED LIST changes: +Acetaminophen325 M1 PO; +Calcium Carbon500 MG PO; +DOCU100 PO; +JUVEN PO; +METH10 PO; +NYSTATIN15 GM TOP; +SENN187 PO; +VISBIOME 112.51 EACH PO; +VITAMIN C125 MG PO
== END 2022-07-27 22:51 | disposition home or self-care (01) ==
LOC: WOUND 01:47
DX: T81.89XA Other complications of procedures, not elsewhere classified, initial encounter (principal); L97.115 Non-pressure chronic ulcer of right thigh with muscle involvement without evidence of necrosis
CPT/HCPCS: A9270; G0463

== ENCOUNTER 2023-07-04 15:48 | Emergency (ER) | payer OTHER ==
[~2023-07-04] VITALS: Ht 172.7 cm; Wt 81.7 kg
[~2023-07-04 15:48] MED LIST changes: +LIDOCAINE1 EACH TOP; +Robaxin750 MG PO
== END 2023-07-04 16:31 | disposition home or self-care (01) ==
LOC: ER 15:48
DX: F11.23 Opioid dependence with withdrawal (principal); I10 Essential (primary) hypertension; Z79.899 Other long term (current) drug therapy; F17.210 Nicotine dependence, cigarettes, uncomplicated
CPT/HCPCS: 99283; A9270

== ENCOUNTER 2023-07-30 00:16 | Emergency (ER) | payer OTHER ==
[~2023-07-30] VITALS: Ht 127 cm; Wt 56.7 kg
[2023-07-30 01:07] VITALS: BP 152/107
== END 2023-07-30 05:07 | disposition home or self-care (01) ==
LOC: ER 00:16
DX: S40.011A Contusion of right shoulder, initial encounter (principal); S20.211A Contusion of right front wall of thorax, initial encounter; I10 Essential (primary) hypertension; Y04.8XXA Assault by other bodily force, initial encounter; F17.210 Nicotine dependence, cigarettes, uncomplicated
CPT/HCPCS: 71046; 73030; 96372; 99283-25; J1885